=== PATIENT | female | born 1960 | race Caucasian/White ===

== ENCOUNTER 2017-05-27 08:57 | Emergency (ER) | payer OTHER ==
[2017-05-27] MEDS ORDERED: NS 1,000 ML IV ONE (09:29)
[2017-05-27] MEDS ORDERED: DEXAMETHASONE 10 MG/ML VIAL IVP ONE (09:29)
[2017-05-27] MEDS ORDERED: METOCLOPRAMIDE 10 MG/2 ML VIAL IVP ONE (09:29)
--- NOTE | 2017-05-27 09:29 | EDPHY ---
H & P Stated Complaint: pt had migraine last week/today developed flashing lights in vision of both HPI/ROS: CHIEF COMPLAINT: Migraine, flashes in her vision HISTORY OF PRESENT ILLNESS: Patient complains of a migraine headache last week that wax and wane with increase in severity Friday through Friday. The symptoms began to improve after that and then this morning she began to feel a precursor to her typical migraine type of headache. But this was then followed with flashes of light in both eyes for several minutes while at work this morning. This was different for her. There was no neck pain or stiffness. No fever chills but no trauma or injury. No headache during this time but she feels as though she is about to developed another migraine headache. No chest pain at any time throughout this. No shortness of breath. No recent travel or illness. No other associated complaints or modifying factors. REVIEW OF SYSTEMS: Ten systems reviewed and are negative unless otherwise noted in the HPI PAST MEDICAL HISTORY: Migraine headaches, hypercholesterolemia, anxiety, GERD PAST SURGICAL HISTORY: Tonsillectomy, appendectomy SOCIAL HISTORY: Works here in [place] at [employer]. Nonsmoker. No alcohol. FAMILY HISTORY: Noncontributory EXAMINATION General Appearance: Alert, no distress Head: normocephalic, atraumatic. No Hills sign. No raccoon eyes. Eyes: Pupils equal and round, no conjunctival pallor or injection. EOMs intact. No nystagmus. No subconjunctival hemorrhage. ENT, Mouth: Mucous membranes moist. Airway widely patent Neck: Normal inspection, supple, non-tender. No crepitus, step-off or deformity. Painless range of motion all planes. No rigidity or meningismus. Respiratory: Lungs are clear to auscultation. No wheezing, rhonchi or crackles Cardiovascular: Regular rate and rhythm. No murmur. Gastrointestinal: Abdomen is soft and nontender. No distention rigidity Back: non-tender, no bony abnormalities Neurological: GCS 15. A&O, nonfocal, normal gait. Strength is symmetric in all 4 limbs. No pronator drift. No dysmetria. NIH stroke scale is 0 Skin: Warm and dry, no rash no petechiae or purpura Extremities: Nontender, no pedal edema Psychiatric: Mood and affect normal DIFFERENTIAL DIAGNOSES: Including but not limited to migraine, atypical migraine, intracranial hemorrhage, electrolyte disturbance, stress reaction, anxiety MDM: 9:30 a.m. Migraine headache with flashes in both eyes this morning that were symmetric in resolved after several minutes. Mild headache at this time. No chest pain. No changes in her vision at this time. Suspect this is an atypical migraine. Laboratory studies and CT pending at this time. 10:30 a.m. Notified by radiologist Dr. Hoyt. CT scan of the head is unremarkable. 10:40 a.m. I have re-evaluated the patient. She is feeling significantly better at this time. Minimal headache. No visual disturbance. Vital signs remained stable. Her neck remains supple. She would like to be discharged home. I do feel she is stable for discharge home. Continue treatment with Benadryl over-the- counter every 6 hours for the next 2-3 days. Continue previously prescribed migraine medications. I will add Fioricet for short course of relief. Follow up with primary care physician Dr. Paez. She is discharged home stable condition. Source: Patient Exam Limitations: No limitations - Personal History Current Tetanus/Diphtheria Vaccine: Unsure Tetanus Vaccine Date: within 10 years - Medical/Surgical History Hx Asthma: No Hx Chronic Respiratory Disease: No Hx Diabetes: No Hx Cardiac Disease: No Hx Renal Disease: No Hx Cirrhosis: No Hx Alcoholism: No Hx HIV/AIDS: No Hx Splenectomy or Spleen Trauma: No Other PMH: Migraines, hypothyroid. Appy,tonsils,lap band, left knee surgery 07/06, popliteal blood clot 02/03/15> PE - Social History Smoking Status: Never smoked Constitutional: Initial Vital Signs Temperature (C) 98.4 F 05/27/17 09:01 Heart Rate 71 05/27/17 09:01 Respiratory Rate 05/27/17 09:01 Blood Pressure 152/92 H 05/27/17 09:01 O2 Sat (%) 97 05/27/17 09:01 O2 Delivery Mode Room Air Allergies/Adverse Reactions: azithromycin [Azithromycin] Allergy (Intermediate, Verified 05/27/17 09:00) TONGUE SWELLING Sulfa (Sulfonamide Antibiotics) Allergy (Intermediate, Verified 05/27/17 09:00) TONGUE SWELLING codeine [Codeine] Allergy (Mild, Verified 05/27/17 09:00) STOMACH UPSET Home Medications: Medication Instructions Recorded Atorvastatin Calcium [Lipitor 40 40 mg PO DAILY 02/07/15 mg (*)] Escitalopram Oxalate [Lexapro] 20 mg PO DAILY 02/07/15 Levothyroxine [Synthroid 100 mcg 100 mcg PO DAILY06 02/07/15 (*)] Liothyronine Sodium [Cytomel 5 mcg 10 mcg PO DAILY 02/07/15 (*)] Pantoprazole Sodium [Protonix 40mg 40 mg PO DAILY 02/07/15 (*)] busPIRone [Buspar (*)] 15 mg PO DAILY 02/07/15 Codeine/Butalbit/Acetamin/Caff 1 each PO Q6 PRN #12 capsule 05/27/17 [Fioricet-Cod 75-81-265-40 Cap] Zomig 05/27/17 Medical Decision Making - Diagnostics Imaging Results: Imaging Impressions Head CT 05/27/17 09:29 Impression: There is no acute abnormality identified on this unenhanced CT evaluation. If there is further clinical concern regarding the patient's symptoms, MR imaging is suggested, if not otherwise contraindicated. Findings were discussed with Javier Merino PA-C at 10:31 AM, on 05/27/2017. - Data Points Laboratory Results: Laboratory Results 05/27/17 09:15 05/27/17 09:15 05/27/17 05/27/17 05/27/17 09:15 09:15 09:15 WBC 5.82 10^3/uL 10^3/uL (3.80-9.50) RBC 4.78 10^6/uL 10^6/uL (4.18-5.33) Hgb 13.4 g/dL g/dL (12.6-16.3) Hct 41.2 % % (38.0-47.0) MCV 86.2 fL fL (81.5-99.8) MCH 28.0 pg pg (27.9-34.1) MCHC 32.5 g/dL g/dL (32.4-36.7) RDW 15.0 % % (11.5-15.2) Plt Count 293 10^3/uL 10^3/uL (150-400) MPV 9.9 fL fL (8.7-11.7) Neut % (Auto) 59.8 % % (39.3-74.2) Lymph % (Auto) 31.3 % % (15.0-45.0) Mclean % (Auto) 7.0 % % (4.5-13.0) Eos % (Auto) 1.0 % % (0.6-7.6) Baso % (Auto) 0.7 % % (0.3-1.7) Nucleat RBC Rel Count 0.0 % % (0.0-0.2) Absolute Neuts (auto) 3.48 10^3/uL 10^3/uL (1.70-6.50) Absolute Lymphs (auto) 1.82 10^3/uL 10^3/uL (1.00-3.00) Absolute Monos (auto) 0.41 10^3/uL 10^3/uL (0.30-0.80) Absolute Eos (auto) 0.06 10^3/uL 10^3/uL (0.03-0.40) Absolute Basos (auto) 0.04 10^3/uL 10^3/uL (0.02-0.10) Absolute Nucleated RBC 0.00 10^3/uL 10^3/uL (0-0.01) Immature Gran % 0.2 % % (0.0-1.1) Immature Gran # 0.01 10^3/uL 10^3/uL (0.00-0.10) Sodium 138 mEq/L mEq/L (134-144) Potassium 4.2 mEq/L mEq/L (3.5-5.2) Chloride 102 mEq/L mEq/L (97-110) Carbon Dioxide 25 mEq/l mEq/l (22-31) Anion Gap 11 mEq/L mEq/L (8-16) BUN 9 mg/dL mg/dL (7-23) Creatinine 1.0 mg/dL mg/dL (0.6-1.0) Estimated GFR 58 Glucose 94 mg/dL mg/dL (70-100) Calcium 10.4 mg/dL mg/dL (8.5-10.4) Troponin I < 0.012 ng/mL ng/mL (0.000-0.034) Beta HCG, Qual NEGATIVE Medications Given: Discontinued Medications Dexamethasone (Decadron Injection) 10 mg IVP EDNOW ONE Stop: 05/27/17 09:30 Last Admin: 05/27/17 09:37 Dose: 10 mg Diphenhydramine HCl (Benadryl Injection) 25 mg IVP EDNOW ONE Stop: 05/27/17 09:30 Last Admin: 05/27/17 09:37 Dose: 25 mg Sodium Chloride (Ns) 1,000 mls @ 0 mls/hr IV ONCE ONE; Wide Open PRN Reason: Protocol Stop: 05/27/17 09:30 Last Admin: 05/27/17 09:35 Dose: 1,000 mls Metoclopramide HCl (Reglan Injection) 10 mg IVP EDNOW ONE Stop: 05/27/17 09:30 Last Admin: 05/27/17 09:35 Dose: 10 mg Departure - Departure Disposition: Home, Routine, Self-Care Clinical Impression: Migraine with aura Qualifiers: Status migrainosus presence: without status migrainosus Intractability: not intractable Qualified Code(s): G43.109 - Migraine with aura, not intractable, without status migrainosus Condition: Good Instructions: Migraine Headache (ED), Ocular Migraine (ED) Additional Instructions: 1. Continue previously prescribed migraine medication 2. Fioricet as prescribed as needed 3. Contact primary care physician for definitive care 4. ED precautions as discussed Referrals: Mei Villalba MD [Primary Care Provider] - As per Instructions Stand Alone Forms: Work Excuse Prescriptions: Codeine/Butalbit/Acetamin/Caff [Fioricet-Cod 92-12-710-40 Cap] 1 each PO Q6 PRN #12 capsule PRN Reason: Headache
[2017-05-27 09:39] LABS: % IMMATURE GRANULYOCYTES 0.2 % (0.0-1.1); ABSOLUTE IMMATURE GRANULOCYTES 0.01 10^3/uL (0.00-0.10); ADD DIFF? NO; ADD MORPH? NO; ADD SCAN? NO; ATYPICAL LYMPHOCYTE FLAG 30 (0-99); FRAGMENT RBC FLAG 0 (0-99); HEMATOCRIT 41.2 % (38.0-47.0); HEMOGLOBIN 13.4 g/dL (12.6-16.3); LEFT SHIFT FLG 0 (0-99); LIPEMIA HEMOLYSIS FLAG 80 (0-99); MEAN CELL HEMOGLOBIN CONCENTR. 32.5 g/dL (32.4-36.7); MEAN CELL VOLUME 86.2 fL (81.5-99.8); MEAN PLATELET VOLUME 9.9 fL (8.7-11.7); PLATELET CLUMPS FLAG 10 (0-99); PLATELET COUNT 293 10^3/uL (150-400); RED BLOOD CELL COUNT 4.78 10^6/uL (4.18-5.33)
[2017-05-27 09:41] VITALS: RESP 16
[2017-05-27 09:50] LABS: ANION GAP 11 mEq/L (8-16); CALCIUM 10.4 mg/dL (8.5-10.4); CARBON DIOXIDE 25 mEq/l (22-31); CHLORIDE 102 mEq/L (97-110); GLOMERULAR FILTRATION RATE 58; GLUCOSE 94 mg/dL (70-100); POTASSIUM 4.2 mEq/L (3.5-5.2); SODIUM 138 mEq/L (134-144)
[2017-05-27 10:00] LABS: TROPONIN I < 0.012 ng/mL (0.000-0.034)
[2017-05-27 10:52] VITALS: BP 138/79; PULSE 58; TEMP 97.9; O2SAT 96
== END 2017-05-27 10:52 | disposition home or self-care (01) ==
DX: G43.109 Migraine with aura, not intractable, without status migrainosus (principal); E86.9 Volume depletion, unspecified
CPT/HCPCS: 96374; J1100; J1200; J2765

== ENCOUNTER → 2017-06-05 | Outpatient (CLI) | payer OTHER | LOC: SBRMNEURO 20:00 | PROVIDERS: ATTEND Physician Assistant Medical | DX: G47.33 Obstructive sleep apnea (adult) (pediatric) (principal); G47.61 Periodic limb movement disorder ==

== ENCOUNTER → 2017-10-14 | Outpatient (CLI) | payer OTHER | LOC: FIMAGING 11:40 | PROVIDERS: ATTEND Internal Medicine | DX: R91.1 Solitary pulmonary nodule (principal) ==

== ENCOUNTER → 2017-12-22 | Outpatient (CLI) | payer OTHER | LOC: CIMAGING 15:29 | PROVIDERS: ATTEND Nurse Practitioner | DX: R05 Cough (principal) | CPT/HCPCS: 71046-PO ==

== ENCOUNTER → 2018-08-24 | Outpatient (CLI) | payer OTHER | LOC: FIMAGING 16:00 | PROVIDERS: ATTEND Obstetrics & Gynecology | DX: R93.89 Abnormal findings on diagnostic imaging of other specified body structures (principal); D25.1 Intramural leiomyoma of uterus ==